=== PATIENT | male | born 1995 | race Caucasian/White ===

== ENCOUNTER 2017-02-12 19:09 | Emergency (ER) | payer BC ==
--- NOTE | 2017-02-12 19:35 | EDPHY ---
H & P Stated Complaint: RLQ pain, hx hernia Time Seen by Provider: 02/12/17 19:34 HPI/ROS: HPI: This is a 21-year-old male presents with Chief Complaint: RLQ pain, hx hernia Location: Right groin Quality: Pain Duration: 3 days Signs and Symptoms: no fever, no nausea, no vomiting, no hematemesis, no blood in stool, no abdominal bloating, no diarrhea, no back pain, no urinary symptoms , no testicular/groin pain, no indigestion, no chest pain, no shortness of breath Timing: Worsening Severity: Moderate to severe Context: Patient reports he was diagnosed with a right inguinal hernia approximately 3 years ago that has been self reducible but over the last 3 days he really feels like it may be incarcerated as the pain has increased. He has been lifting more heavily over the last month and believes that this is the exacerbating factor. He is able to eat and drink normally. Denies any dysuria/ urinary symptoms/fever/back pain/penile discharge/testicular pain. Reports that he has an appointment with a local primary care provider tomorrow but felt that the pain was so bad that he came to the emergency room for further evaluation. He is originally from [place]. Modifying Factors: None Comment: ROS: see HPI Constitutional: No fever, no chills, no weight loss Eyes: No blurred vision Respiratory: No shortness of breath, no cough Cardiovascular: No chest pain, no palpitations Gastrointestinal: No nausea, no vomiting, no diarrhea, no hematemesis, no blood in stool Genitourinary: No dysuria, no blood in urine Extremities: No myalgias, no edema Neurologic: No weakness, no numbness Skin: No rashes, no petechiae Hematologic: No bruising, no bleeding MEDICAL/SURGICAL/SOCIAL HISTORY: Medical history: Generally healthy. Does not take any regular medications. Surgical history: sutures left elbow following hitting it on rock while sledding , appendectomy, hernia Social history: Local student at , originally from [place] CONSTITUTIONAL: Polite and cooperative extremely well-appearing young adult white male, awake and alert, no obvious distress HEENT: Atraumatic and normocephalic, PERRL, EOMI. Tympanic membranes clear. Oropharynx clear, no exudate and moist pink mucosa. Airway patent. No lymphadenopathy. No meningismus. Cardiovascular: Normal S1/S2, regular rate, regular rhythm, without murmur rub or gallop. PULMONARY/CHEST: Symmetrical and nontender. Clear to auscultation bilaterally. Good air movement. No accessory muscle usage. ABDOMEN: Soft, nondistended, nontender, no rebound, no guarding, no peritoneal signs, no masses or organomegaly. No CVAT. : Circumcised, bilateral descended testes, No groin mass appreciable, no hernia palpated through transverse house fascia in Hesselbach triangle, no penile discharge, no testicular swelling or pain, negative Prehn sign. EXTREMITIES: 2/2 pulses, strength 5/5, no deformities, no clubbing, no cyanosis or edema. NEUROLOGICAL: no focal neuro deficits. GCS 15. SKIN: Warm and dry, no erythema. no rash. Good capillary refill. Source: Patient Exam Limitations: No limitations - Personal History Current Tetanus/Diphtheria Vaccine: Yes - Medical/Surgical History Hx Asthma: No Hx Chronic Respiratory Disease: No Hx Diabetes: No Hx Cardiac Disease: No Hx Renal Disease: No Hx Cirrhosis: No Hx Alcoholism: No Hx HIV/AIDS: No Hx Splenectomy or Spleen Trauma: No Other PMH: sutures left elbow following hitting it on rock while sledding. appy ,. hernia - Social History Smoking Status: Never smoked Constitutional: Initial Vital Signs Temperature (C) 36.5 C 02/12/17 19:11 Heart Rate 75 02/12/17 19:11 Respiratory Rate 16 02/12/17 19:11 Blood Pressure 138/72 H 02/12/17 19:11 O2 Sat (%) 95 02/12/17 19:11 O2 Delivery Mode Room Air Allergies/Adverse Reactions: No Known Allergies Allergy (Verified 02/12/17 19:14) Home Medications: Medication Instructions Recorded NK [No Known Home Meds] 02/10/15 Medical Decision Making ED Course/Re-evaluation: Labs, oral medication, CT pelvis with contrast ordered Roldan score=0; unlikely appendicitis. 2114: Called by radiologist who advised no signs of appendicitis, obstruction, inguinal hernia, or incarcerated strangulated, colitis Suspect groin strain; advised supportive care. No suspicion for epididymitis/testicular torsion/orchitis This patient was seen under the supervision of my secondary supervising physician. I evaluated care for this patient independently. Discussed this patient with Dr. Vela who did not see the patient. Differential Diagnosis: Differential diagnosis includes but is not limited to hydrocele, indirect inguinal hernia, orchitis, spermatocele, testicular torsion. - Data Points Laboratory Results: Laboratory Results 02/12/17 19:54 02/12/17 19:54 02/12/17 02/12/17 19:54 19:54 WBC 8.01 10^3/uL 10^3/uL (3.80-9.50) RBC 5.34 10^6/uL 10^6/uL (4.40-6.38) Hgb 17.5 g/dL g/dL (13.7-17.5) Hct 49.0 % % (40.0-51.0) MCV 91.8 fL fL (81.5-99.8) MCH 32.8 pg pg (27.9-34.1) MCHC 35.7 g/dL g/dL (32.4-36.7) RDW 11.7 % % (11.5-15.2) Plt Count 255 10^3/uL 10^3/uL (150-400) MPV 8.6 fL L fL (8.7-11.7) Neut % (Auto) 64.0 % % (39.3-74.2) Lymph % (Auto) 24.5 % % (15.0-45.0) Armstrong % (Auto) 9.5 % % (4.5-13.0) Eos % (Auto) 1.2 % % (0.6-7.6) Baso % (Auto) 0.4 % % (0.3-1.7) Nucleat RBC Rel Count 0.0 % % (0.0-0.2) Absolute Neuts (auto) 5.13 10^3/uL 10^3/uL (1.70-6.50) Absolute Lymphs (auto) 1.96 10^3/uL 10^3/uL (1.00-3.00) Absolute Monos (auto) 0.76 10^3/uL 10^3/uL (0.30-0.80) Absolute Eos (auto) 0.10 10^3/uL 10^3/uL (0.03-0.40) Absolute Basos (auto) 0.03 10^3/uL 10^3/uL (0.02-0.10) Absolute Nucleated RBC 0.00 10^3/uL 10^3/uL (0-0.01) Immature Gran % 0.4 % % (0.0-1.1) Immature Gran # 0.03 10^3/uL 10^3/uL (0.00-0.10) Sodium 141 mEq/L mEq/L (134-144) Potassium 4.1 mEq/L mEq/L (3.5-5.2) Chloride 98 mEq/L mEq/L (97-110) Carbon Dioxide 30 mEq/l mEq/l (22-31) Anion Gap 13 mEq/L mEq/L (8-16) BUN 16 mg/dL mg/dL (7-23) Creatinine 1.1 mg/dL mg/dL (0.7-1.3) Estimated GFR > 60 Glucose 72 mg/dL mg/dL (70-100) Calcium 10.5 mg/dL H mg/dL (8.5-10.4) Total Bilirubin 0.4 mg/dL mg/dL (0.1-1.4) Conjugated Bilirubin 0.2 mg/dL mg/dL (0.0-0.5) Unconjugated Bilirubin 0.2 mg/dL mg/dL (0.0-1.1) AST 40 IU/L IU/L (17-59) ALT 51 IU/L IU/L (21-72) Alkaline Phosphatase 78 IU/L IU/L (38-126) Total Protein 7.8 g/dL g/dL (6.3-8.2) Albumin 4.6 g/dL g/dL (3.5-5.0) Medications Given: Discontinued Medications Ibuprofen (Motrin) 600 mg PO EDNOW ONE Stop: 02/12/17 19:45 Last Admin: 02/12/17 19:54 Dose: 600 mg Oxycodone/Acetaminophen (Percocet 5/325) 1 tab PO EDNOW ONE Stop: 02/12/17 19:45 Last Admin: 02/12/17 19:54 Dose: 1 tab Departure - Departure Disposition: Home, Routine, Self-Care Clinical Impression: Strain of muscle of right groin region Condition: Good Instructions: Groin Strain (ED) Additional Instructions: CT scan of your pelvis today does not show any signs of right inguinal hernia, strangulation, obstruction, appendicitis. It appears that you have a right groin strain. Please rest and avoid any heavy lifting or vigorous exercise until discomfort stops. Take Tylenol 650 mg every 4 hours and/or Ibuprofen 600 mg every 8 hours with food as needed for pain. Apply ice for 30 minutes at a time; 2-3 times per day for the next 1-2 days. Referrals: [facility],. [Clinic] - As per Instructions
[2017-02-12] MEDS ORDERED: OXYCODONE/APAP 5/325 TAB PO ONE (19:44)
[2017-02-12] MEDS ORDERED: IBUPROFEN 600 MG TAB PO ONE (19:44)
[2017-02-12 20:03] LABS: % IMMATURE GRANULYOCYTES 0.4 % (0.0-1.1); ABSOLUTE IMMATURE GRANULOCYTES 0.03 10^3/uL (0.00-0.10); ADD DIFF? NO; ADD MORPH? NO; ADD SCAN? NO; ATYPICAL LYMPHOCYTE FLAG 40 (0-99); FRAGMENT RBC FLAG 0 (0-99); HEMOGLOBIN 17.5 g/dL (13.7-17.5); LEFT SHIFT FLG 0 (0-99); LIPEMIA HEMOLYSIS FLAG 90 (0-99); MEAN CELL HEMOGLOBIN 32.8 pg (27.9-34.1); MEAN CELL HEMOGLOBIN CONCENTR. 35.7 g/dL (32.4-36.7); MEAN CELL VOLUME 91.8 fL (81.5-99.8); MEAN PLATELET VOLUME 8.6 fL (8.7-11.7); PLATELET CLUMPS FLAG 20 (0-99); PLATELET COUNT 255 10^3/uL (150-400); RED BLOOD CELL COUNT 5.34 10^6/uL (4.40-6.38); RED CELL DISTRIBUTION WIDTH 11.7 % (11.5-15.2)
[2017-02-12 20:16] LABS: ALANINE AMINOTRANSFERASE 51 IU/L (21-72); ALBUMIN 4.6 g/dL (3.5-5.0); ALKALINE PHOSPHATASE 78 IU/L (38-126); ANION GAP 13 mEq/L (8-16); ASPARTATE AMINOTRANSFERASE 40 IU/L (17-59); BILIRUBIN,TOTAL 0.4 mg/dL (0.1-1.4); BILIRUBIN-CONJUGATED 0.2 mg/dL (0.0-0.5); BILIRUBIN-UNCONJUGATED 0.2 mg/dL (0.0-1.1); CALCIUM 10.5 mg/dL (8.5-10.4); CARBON DIOXIDE 30 mEq/l (22-31); CHLORIDE 98 mEq/L (97-110); CREATININE 1.1 mg/dL (0.7-1.3); GLOMERULAR FILTRATION RATE > 60; GLUCOSE 72 mg/dL (70-100); POTASSIUM 4.1 mEq/L (3.5-5.2); SODIUM 141 mEq/L (134-144); TOTAL PROTEIN 7.8 g/dL (6.3-8.2)
[2017-02-12] MEDS ORDERED: IOPAMIDOL (ISOVUE-300) 100 ML BTL ONE (20:27)
[2017-02-12 21:39] VITALS: BP 128/82; PULSE 68; RESP 18; TEMP 98.4; O2SAT 99
== END 2017-02-12 21:39 | disposition home or self-care (01) ==
DX: S39.011A Strain of muscle, fascia and tendon of abdomen, initial encounter (principal); X50.0XXA Overexertion from strenuous movement or load, initial encounter
CPT/HCPCS: Q9967